=== PATIENT | female | born 1955 | race Two or more races ===

== ENCOUNTER 2020-09-06 16:15 | Emergency (ER) | payer OTHER ==
[~2020-09-06] VITALS: Ht 162.6 cm; Wt 63.5 kg
[2020-09-06] MEDS ORDERED: cloNIDine HCL 0.1 MG TAB PO ONE (16:30)
[2020-09-06 17:29] VITALS: BP 143/85
== END 2020-09-06 17:58 | disposition home or self-care (01) ==
LOC: ER 16:15
DX: I16.0 Hypertensive urgency (principal); S60.211D Contusion of right wrist, subsequent encounter; X58.XXXD Exposure to other specified factors, subsequent encounter
CPT/HCPCS: 93005